=== PATIENT | female | born 1980 | race Caucasian/White ===

== ENCOUNTER → 2017-07-28 | Outpatient (CLI) | payer OTHER ==
--- NOTE | 2017-07-28 10:39 | KCIC ---
PELVIS W/TV History: Pelvic pain on the right side Comparison: None. Findings: Multiple transabdominal sonographic images of the pelvis are submitted. Uterus measured 9.7 x 4.4 cm. Ovaries are not well visualized on this portion of exam. Multiple transvaginal sonographic images of the pelvis are submitted. There is IUD present in the endometrial cavity. Endometrium measured up to 0.7 cm in thickness Uterus measured 7.5 x 4.2 x 5.3 cm. Right ovary measured 3.5 x 1.7 x 2.77 m. There is a hypoechoic lesion of the right ovary on the order of 1.9 x 1.5 x 1.7 cm. Another hypoechoic lesion right ovary measured 1.4 x 1.3 x 1 cm. There is normal low resistance vascularity of the right ovary. Left ovary measured 3.6 x 2.9 x 3.1 cm, normal low resistance vascularity. There is a focus of different echogenicity with diffuse internal echoes of the left ovary up to 2.4 x 2.5 x 2.1 cm. No significant free fluid is demonstrated. Impression: 1. There is what likely represents hemorrhagic cyst or endometrioma of the left ovary up to 2.5 cm. 2. There are 2 small cysts or dominant follicles of the right ovary, largest 1.9 cm. There is no free fluid. 3. There is IUD appropriately positioned in the endometrial cavity. Electronically signed by: Wally Cuevas MD (07/28/2017 10:36 AM) [id number]
== END | disposition home or self-care (01) ==
LOC: KCIC US 09:42
PROVIDERS: ATTEND Obstetrics & Gynecology
DX: R10.2 Pelvic and perineal pain (principal)
CPT/HCPCS: 76830; 76856

== ENCOUNTER → 2017-08-29 | Outpatient (CLI) | payer BC, OTHER | END | disposition home or self-care (01) | LOC: KCIC US 14:39 | DX: N83.202 Unspecified ovarian cyst, left side (principal); N88.8 Other specified noninflammatory disorders of cervix uteri | CPT/HCPCS: 76830; 76856 ==